=== PATIENT | female | born 2000 | race Hispanic/Latino ===

== ENCOUNTER 2018-01-28 14:16 | Emergency (ER) | payer MEDICAID ==
[~2018-01-28 14:16] MED LIST: ACET1TAB12 PO
[2018-01-28] MEDS ORDERED: ACETAMINOPHEN EXTRA STRENGTH 500 MG TABLET ONE (14:42)
[2018-01-28] MEDS ORDERED: CYCLOBENZAPRINE HCL 10 MG TABLET ONE (14:42)
== END 2018-01-28 16:06 | disposition home or self-care (01) ==
LOC: EDH 14:16
DX: M43.6 Torticollis (principal)

== ENCOUNTER 2019-01-25 18:14 | Inpatient (IN) | payer MEDICAID, OTHER ==
[~2019-01-25] VITALS: Ht 170.2 cm; Wt 94.8 kg
[2019-01-25] MEDS ORDERED: ONDANSETRON ODT 4 MG TAB ONE (18:42)
[2019-01-25] MEDS ORDERED: FAMOTIDINE 20MG TAB 20 MG TAB ONE ×2 (18:42→19:46)
[2019-01-25 18:47] LABS: BASOPHILS % (AUTO) 0.3 % (0.0-5.0); EOSINOPHILS % (AUTO) 0.3 % (0.0-8.0); HEMATOCRIT 28.8 % (36-48); LYMPHOCYTES % (AUTO) 11.1 % (21.0-51.0); MEAN CORPUSCULAR HGB CONC 31.4 g/dL (32.0-36.0); MEAN CORPUSCULAR VOLUME 63.7 fL (80-100); MONOCYTES % (AUTO) 5.4 % (3.0-13.0); NEUTROPHILS % (AUTO) 82.9 % (40.0-77.0); PLATELET COUNT (AUTO) 287 K/uL (130-400); RED BLOOD CELL COUNT(AUTO) 4.52 MIL/uL (4.00-5.50); RED CELL DISTRIBUTION WIDTH 21.1 % (11.0-15.5); WHITE BLOOD COUNT (AUTO) 9.7 K/uL (4.8-10.8)
[2019-01-25 18:50] LABS: APPEARANCE,URINE CLOUDY (CLEAR); BILIRUBIN,URINE NEGATIVE (NEGATIVE); COLOR,URINE YELLOW (YELLOW); GLUCOSE, URINE (UA) NEGATIVE (NEGATIVE); HCG,QUAL RESULT POSITIVE (NEGATIVE); KETONES,URINE NEGATIVE (NEGATIVE); LEUKOCYTE ESTERASE ,URINE LARGE (NEGATIVE); NITRATE,URINE NEGATIVE (NEGATIVE); OCCULT BLOOD,URINE LARGE (NEGATIVE); PH,URINE 8.5 (5.0-8.0); PROTEIN,URINE 100 mg/dL (NEGATIVE)
[2019-01-25 18:55] LABS: CREATININE 0.7 mg/dL (0.5-1.5); POTASSIUM 3.3 mmol/L (3.5-5.1)
[2019-01-25 18:59] LABS: ALBUMIN 3.6 g/dL (3.5-5.0); BILIRUBIN,DIRECT 0.1 mg/dL (0.0-0.3); BILIRUBIN,TOTAL 0.4 mg/dL (0.2-1.0); TOTAL PROTEIN, SERUM 7.5 g/dL (6.0-8.3)
[2019-01-25 19:21] LABS: BACTERIA,URINE Few /HPF (None Seen); SQUAMOUS EPITHELIAL CELL,UR Few /HPF (0-2); WBC,URINE >100 /HPF (0-1)
[2019-01-25 19:22] LABS: MUCUS,URINE Moderate LPF (None Seen)
[2019-01-25] MEDS ORDERED: CEFTRIAXONE SODIUM 1 GM ONE (19:46)
[2019-01-25] MEDS ORDERED: ACETAMINOPHEN 325 MG TAB ONE (19:46)
[2019-01-25] MEDS ORDERED: ACETAMINOPHEN-CODEINE 300/30MG TAB PO PRN (21:15)
--- NOTE | 2019-01-25 21:40 | NUR ---
Patient came in C/O lower back pain and Nausea and vomiting. Patient denies any pain or nausea and vomiting at this time. Assisted to Bathroom to change. Assisted to bed. Oriented to bed and call hogan. Bed locked and at low position. IV infusing to Rt antecubital. Notified of plan of care. Questions answered and patient verbalizes understanding. No distress noted
[2019-01-25 22:39] VITALS: BP 83/43
[2019-01-25] MEDS: DEXTROSE 5%-LACTATED RINGERS 1,000 ML IV SCH (23:17)
[2019-01-25] MEDS: PROMETHAZINE HCL 25 MG/ML 1ML AMPULE IM PRN (23:49)
--- NOTE | 2019-01-25 23:49 | NUR ---
Patient C/O feeling nauseated. Phenergan 25mg offered. Patient accepts. Phenergan 25mg given IM. Tolerated well.
[2019-01-26] VITALS (7 sets, daily range): BP systolic 68–105; BP diastolic 31–68
--- NOTE | 2019-01-26 02:46 | NUR ---
patient C/O back pain. Requesting pain medication. Score of 6. Tylenol #3 x2 tabs given
[2019-01-26] MEDS: DEXTROSE 5%-LACTATED RINGERS 1,000 ML IV SCH ×3 (04:53→18:32)
[2019-01-26 07:16] LABS: HEMATOCRIT 25.3 % (36-48); MEAN CORPUSCULAR HEMOGLOBIN 20.5 pg (27.0-33.0); MEAN CORPUSCULAR HGB CONC 31.5 g/dL (32.0-36.0); MEAN CORPUSCULAR VOLUME 65.1 fL (80-100); PLATELET COUNT (AUTO) 198 K/uL (130-400); RED BLOOD CELL COUNT(AUTO) 3.89 MIL/uL (4.00-5.50); WHITE BLOOD COUNT (AUTO) 6.5 K/uL (4.8-10.8)
[2019-01-26 07:24] LABS: CREATININE 0.6 mg/dL (0.5-1.5); POTASSIUM 3.3 mmol/L (3.5-5.1)
[2019-01-26 08:00] LABS: LYMPHOCYTES % (MANUAL) 31 % (22-44); MAN.DIFF COMMENT-IMPRESSION MANUAL DIFFERENTIAL; MONOCYTES % (MANUAL) 6 % (2-9); PLATELET MORPHOLOGY COMMENT ADEQUATE; SEGMENTED NEUTROPHILS % 63 % (40-70)
[2019-01-26] MEDS ORDERED: ACETAMINOPHEN-CODEINE 300/30MG TAB PO PRN (08:15)
[2019-01-26] MEDS: CEFTRIAXONE SODIUM 1 GM IVP SCH (09:39)
--- NOTE | 2019-01-26 15:11 | NUR ---
DC PLAN PATIENT LIVES WITH PARENTS. INDEPENDENT ABLE TO PERFORM ADL'S. PATIENT HAS NO SERVICES OR DME'S. PLAN TO RETURN HOME. Addendum: 01/26/19 at 1513 by NEREYDA JARRETT RN CM Amended: Links added.
[2019-01-26] MEDS: ACETAMINOPHEN-CODEINE 300/30MG TAB PO PRN (16:58)
--- NOTE | 2019-01-26 20:20 | NUR ---
received pt. in bed lying on her left side. Physical assessment done. Pt. verbalized that she is by herself tonight. She said that her pain scale is 2 out of 10. positive CVA punch on her right middle flank. Pt. verbalized that her is a surprised. She is a 6 para 5 at 4 wks. by dates and 6 wks. by sonogram. no tachycardia noted and no dyspnea. Iv of D5LR infusing at 150cc per hour per IV pump. IV site is patent and no swelling and no pain noted and as verbalized by the pt.
--- NOTE | 2019-01-26 20:30 | NUR ---
pt. denies abdominal cramping. Pt. fell asleep after assessment.
[2019-01-27] MEDS: DEXTROSE 5%-LACTATED RINGERS 1,000 ML IV SCH ×4 (00:36→23:29)
--- NOTE | 2019-01-27 00:44 | NUR ---
patient denies pain. New bag of D5LR hang and infusing at 150 cc per hour per IV pump. IV site patent.
[2019-01-27 03:48] VITALS: BP 99/58
[2019-01-27] MEDS: ACETAMINOPHEN-CODEINE 300/30MG TAB PO PRN ×2 (05:55→13:02)
[2019-01-27 07:22] VITALS: BP 95/52
[2019-01-27] MEDS: CEFTRIAXONE SODIUM 1 GM IVP SCH (08:11)
--- NOTE | 2019-01-27 08:42 | NUR ---
ACTIVITY PT AMBULATING HALLWAY, STEADY GAIT, TOLERATING WELL, NO C/O PAIN NOR DIZZINESS OR FATIGUE
[2019-01-27 11:23] VITALS: BP 90/43
[2019-01-27 16:55] VITALS: BP 97/51
[2019-01-27] MEDS: PROMETHAZINE HCL 25 MG/ML 1ML AMPULE IM PRN (17:27)
[2019-01-27 19:50] VITALS: BP 104/57
[2019-01-27 23:40] VITALS: BP 107/55
[2019-01-28 03:30] VITALS: BP 98/57
[2019-01-28] MEDS: DEXTROSE 5%-LACTATED RINGERS 1,000 ML IV SCH (05:47)
[2019-01-28 07:42] VITALS: BP 109/51
[2019-01-28] MEDS: CEFTRIAXONE SODIUM 1 GM IVP SCH (09:09)
--- NOTE | 2019-01-28 11:25 | NUR ---
INSTRUCTIONS DISCHARGE INSTRUCTIONS READ AND EXPLAINED TO PATIENT. PRESCRIPTION FOR KEFLEX 500MG, FERROUS SULFATE 325MG AND VITAMINS HANDED TO PATIENT. QUESTIONS INVITED AND ANSWERED.
--- NOTE | 2019-01-28 11:45 | NUR ---
DISCHARGE PATIENT LEFT UNIT VIA WHEELCHAIR WITH BELONGINGS IN HAND. NO COMPLAINTS OR CONCERNS ADDRESSED FROM PATIENT ON DISCHARGE. PERSONAL VEHICLE USED FOR TRANSPORTATION.
== END 2019-01-28 11:45 | disposition home or self-care (01) | DRG 833 ==
LOC: EDH 18:14 → OBSVTOIN 18:15 → EDHIP 18:15 → WSH 23:13
PROVIDERS: ADMIT Specialist; ATTEND Specialist
DX: O23.01 Infections of kidney in pregnancy, first trimester (principal)
CPT/HCPCS: 36415; 76817; 80048; 80076; 81001; 81025; 83690; 84702; 85025; 87077; 87088; 87186; 96360; 96361; A4218; G0378; J0696; J2550

== ENCOUNTER 2019-05-28 13:38 | Emergency (ER) | payer MEDICAID ==
[2019-05-28] MEDS ORDERED: ACETAMINOPHEN 325 MG TAB ONE (13:57)
== END 2019-05-28 15:10 | disposition home or self-care (01) ==
LOC: EDH 13:38
DX: O9A.212 Injury, poisoning and certain other consequences of external causes complicating pregnancy, second trimester (principal); S50.01XA Contusion of right elbow, initial encounter; Z3A.15 15 weeks gestation of pregnancy; W23.0XXA Caught, crushed, jammed, or pinched between moving objects, initial encounter; Y93.89 Activity, other specified; Y92.098 Other place in other non-institutional residence as the place of occurrence of the external cause; Y99.8 Other external cause status
CPT/HCPCS: 99282

== ENCOUNTER 2020-12-12 18:33 | Emergency (ER) | payer MEDICAID ==
[2020-12-12 19:19] LABS: APPEARANCE,URINE Cloudy (CLEAR); BILIRUBIN,URINE Negative (NEGATIVE); COLOR,URINE Yellow (YELLOW); GLUCOSE, URINE (UA) Negative (NEGATIVE); KETONES,URINE Negative (NEGATIVE); LEUKOCYTE ESTERASE ,URINE Moderate (NEGATIVE); NITRATE,URINE Negative (NEGATIVE); OCCULT BLOOD,URINE Large (NEGATIVE); PH,URINE 5.5 (5.0-8.0); PROTEIN,URINE POS 2+ mg/dL (NEGATIVE)
[2020-12-12 19:24] LABS: HCG,QUAL RESULT NEGATIVE (NEGATIVE)
[2020-12-12] MEDS ORDERED: PHENAZOPYRIDINE HCL 200 MG TABLET ONE (19:53)
[2020-12-12] MEDS ORDERED: CEFTRIAXONE 1G VIAL ONE (19:53)
[2020-12-12 20:01] LABS: BACTERIA,URINE Few /HPF (None Seen); RBC,URINE None Seen /HPF (0-1); SQUAMOUS EPITHELIAL CELL,UR 0-2 /HPF (0-2); WBC,URINE 51-100 /HPF (0-1)
[2020-12-12 20:02] LABS: MUCUS,URINE Few LPF (None Seen)
== END 2020-12-12 21:16 | disposition home or self-care (01) ==
LOC: EDH 18:33
DX: N30.90 Cystitis, unspecified without hematuria (principal); Z90.49 Acquired absence of other specified parts of digestive tract; Z98.51 Tubal ligation status; Z72.0 Tobacco use
CPT/HCPCS: 81001; 81025; 87077 ×2; 87088; 87186 ×2; 96372; 99283; J0696

== ENCOUNTER 2022-06-06 09:45 | Emergency (ER) | payer MEDICAID ==
[~2022-06-06] VITALS: Ht 170.2 cm; Wt 90.7 kg
[2022-06-06 10:16] LABS: BASOPHILS % (AUTO) 0.4 % (0.0-5.0); EOSINOPHILS % (AUTO) 0.5 % (0.0-8.0); HEMATOCRIT 35.5 % (36-48); LYMPHOCYTES % (AUTO) 16.2 % (21.0-51.0); MEAN CORPUSCULAR HEMOGLOBIN 21.9 pg (27.0-33.0); MEAN CORPUSCULAR HGB CONC 30.1 g/dL (32.0-36.0); MEAN CORPUSCULAR VOLUME 72.6 fL (79-99); MONOCYTES % (AUTO) 5.1 % (3.0-13.0); NEUTROPHILS % (AUTO) 77.6 % (40.0-77.0); PLATELET COUNT (AUTO) 275 K/uL (130-400); RED BLOOD CELL COUNT(AUTO) 4.89 MIL/uL (4.00-5.50); RED CELL DISTRIBUTION WIDTH 17.9 % (11.0-15.5)
[2022-06-06 10:23] LABS: CREATININE 0.7 mg/dL (0.5-1.5); POTASSIUM 3.7 mmol/L (3.5-5.1)
[2022-06-06 10:26] LABS: HCG,QUALITATIVE URINE NEGATIVE (NEGATIVE)
[2022-06-06 10:28] LABS: ALBUMIN 3.8 g/dL (3.5-5.0); TOTAL PROTEIN, SERUM 8.3 g/dL (6.0-8.3)
[2022-06-06 10:54] LABS: APPEARANCE,URINE CLOUDY (CLEAR); BILIRUBIN,URINE NEGATIVE (NEGATIVE); COLOR,URINE YELLOW (YELLOW); GLUCOSE, URINE (UA) NEGATIVE (NEGATIVE); KETONES,URINE NEGATIVE (NEGATIVE); LEUKOCYTE ESTERASE ,URINE MODERATE (NEGATIVE); NITRATE,URINE NEGATIVE (NEGATIVE); OCCULT BLOOD,URINE LARGE (NEGATIVE); PH,URINE 6.5 (5.0-8.0); PROTEIN,URINE 100 mg/dL (NEGATIVE); UROBILINOGEN,URINE 0.2 mg/dL (0.2-1.0)
[2022-06-06] MEDS ORDERED: ONDANSETRON 4MG INJ IVP ONE (11:00)
[2022-06-06] MEDS ORDERED: MORPHINE 4 MG SYG IVP ONE ×2 (11:00→13:00)
[2022-06-06] MEDS ORDERED: KETOROLAC 15MG/ML VIAL (15MG/ML) IV ONE (11:00)
[2022-06-06 11:17] LABS: BACTERIA,URINE Rare /HPF (None Seen); RBC,URINE 0-1 /HPF (0-1); SQUAMOUS EPITHELIAL CELL,UR Rare /HPF (0-2); WBC,URINE >100 /HPF (0-1)
[2022-06-06] MEDS ORDERED: DICYCLOMINE HCL 10 MG/5 ML ML PO ONE (13:00)
[2022-06-06] MEDS ORDERED: LIDOCAINE HCL 2% VISCOUS 15 ML UDCUP PO ONE (13:00)
[2022-06-06] MEDS ORDERED: MAG/ALUM/SIMETH 30 ML UDCUP PO ONE (13:00)
[2022-06-06] MEDS ORDERED: CYCLOBENZAPRINE HCL 10 MG TABLET PO ONE (13:00)
[2022-06-06] MEDS ORDERED: IBUP-2070 PO (14:36)
[2022-06-06] MEDS ORDERED: ACET-2079 PO (14:36)
[2022-06-06 15:15] VITALS: BP 96/57
== END 2022-06-06 15:19 | disposition home or self-care (01) ==
LOC: EDH 09:45
DX: M54.9 Dorsalgia, unspecified (principal); R10.84 Generalized abdominal pain; R10.11 Right upper quadrant pain; R11.0 Nausea; Z79.1 Long term (current) use of non-steroidal anti-inflammatories (NSAID); Z90.49 Acquired absence of other specified parts of digestive tract
CPT/HCPCS: 99284; 74176; 96374; 76705; 96375; 80053; 85025; 87077; 87088; 87186; 81001; 81025; 36415; J2405; J2270; J1885

== ENCOUNTER 2022-06-12 05:44 | Emergency (ER) | payer MEDICAID ==
[~2022-06-12 05:44] MED LIST changes: +ACET-2079 PO; -ACET1TAB12 PO; +IBUP-2070 PO
[2022-06-12 06:11] LABS: BASOPHILS % (AUTO) 0.3 % (0.0-5.0); EOSINOPHILS % (AUTO) 0.3 % (0.0-8.0); HEMATOCRIT 33.3 % (36-48); LYMPHOCYTES % (AUTO) 32.2 % (21.0-51.0); MEAN CORPUSCULAR HEMOGLOBIN 22.3 pg (27.0-33.0); MEAN CORPUSCULAR HGB CONC 30.6 g/dL (32.0-36.0); MEAN CORPUSCULAR VOLUME 72.7 fL (79-99); MONOCYTES % (AUTO) 8.3 % (3.0-13.0); NEUTROPHILS % (AUTO) 58.6 % (40.0-77.0); PLATELET COUNT (AUTO) 270 K/uL (130-400); RED BLOOD CELL COUNT(AUTO) 4.58 MIL/uL (4.00-5.50); RED CELL DISTRIBUTION WIDTH 18.3 % (11.0-15.5); WHITE BLOOD COUNT (AUTO) 7.5 K/uL (4.8-10.8)
[2022-06-12 06:19] LABS: APPEARANCE,URINE CLOUDY (CLEAR); BILIRUBIN,URINE SMALL (NEGATIVE); COLOR,URINE YELLOW (YELLOW); GLUCOSE, URINE (UA) NEGATIVE (NEGATIVE); KETONES,URINE 5 mg/dL (NEGATIVE); LEUKOCYTE ESTERASE ,URINE MODERATE (NEGATIVE); NITRATE,URINE POSITIVE (NEGATIVE); OCCULT BLOOD,URINE SMALL (NEGATIVE); PROTEIN,URINE TRACE mg/dL (NEGATIVE)
[2022-06-12 06:23] LABS: ALBUMIN 3.4 g/dL (3.5-5.0); CREATININE 0.8 mg/dL (0.5-1.5); POTASSIUM 3.7 mmol/L (3.5-5.1); TOTAL PROTEIN, SERUM 7.5 g/dL (6.0-8.3)
[2022-06-12 06:23] LABS: HCG,QUALITATIVE URINE NEGATIVE (NEGATIVE)
[2022-06-12] MEDS ORDERED: CEFTRIAXONE 1G VIAL IVP ONE (06:30)
[2022-06-12] MEDS ORDERED: MORPHINE 4 MG SYG IVP ONE (06:30)
[2022-06-12] MEDS ORDERED: ONDANSETRON 4MG INJ IVP ONE (06:30)
[2022-06-12] MEDS ORDERED: 0.9%NACL 1000ML 1,000 ML IV ONE (06:30)
[2022-06-12 06:33] LABS: BACTERIA,URINE Many /HPF (None Seen); MUCUS,URINE Many LPF (None Seen); RBC,URINE 0-1 /HPF (0-1); SQUAMOUS EPITHELIAL CELL,UR Few /HPF (0-2); WBC,URINE 26-50 /HPF (0-1)
[2022-06-12] MEDS ORDERED: SOLU-MEDROL 125MG VIAL IVP ONE (08:00)
[2022-06-12] MEDS ORDERED: DiphenhydrAMINE HCL 50 MG/ML VIAL IV ONE (08:00)
[2022-06-12 08:19] VITALS: BP 138/87
== END 2022-06-12 08:21 | disposition home or self-care (01) ==
LOC: EDH 05:44
DX: N10 Acute pyelonephritis (principal); Z79.1 Long term (current) use of non-steroidal anti-inflammatories (NSAID); Z90.49 Acquired absence of other specified parts of digestive tract
CPT/HCPCS: 99284; 74176; 96374; 96375; 80053; 83690; 85025; 87077; 87088; 87186; 81001; 81025; 36415; J7030; J0696; J2405; J2270

== ENCOUNTER 2023-07-14 17:59 | Emergency (ER) | payer MEDICAID ==
[~2023-07-14] VITALS: Ht 170.2 cm; Wt 86.2 kg
[2023-07-14 18:04] VITALS: BP 110/63; PULSE 112; RESP 16; O2SAT 97
[2023-07-14 18:23] LABS: BASOPHILS # (AUTO) 0.04 K/uL (0.00-0.20); BASOPHILS % (AUTO) 0.4 % (0.0-5.0); EOSINOPHILS # (AUTO) 0.08 K/uL (0.00-0.70); EOSINOPHILS % (AUTO) 0.8 % (0.0-8.0); HEMATOCRIT 41.9 % (36-48); IMMATURE GRANULOCYTE ABSOLUTE 0.02 K/uL (0-1); LYMPHOCYTES # (AUTO) 1.4 K/uL (1.0-4.8); LYMPHOCYTES % (AUTO) 12.9 % (21.0-51.0); MEAN CORPUSCULAR HEMOGLOBIN 25.8 pg (27.0-33.0); MEAN CORPUSCULAR HGB CONC 31.7 g/dL (32.0-36.0); MEAN CORPUSCULAR VOLUME 81.4 fL (79-99); MONOCYTES # (AUTO) 0.5 K/uL (0.1-1.0); MONOCYTES % (AUTO) 4.6 % (3.0-13.0); NEUTROPHILS # (AUTO) 8.6 K/uL (1.8-7.7); NEUTROPHILS % (AUTO) 81.1 % (40.0-77.0); PLATELET COUNT (AUTO) 305 K/uL (130-400); RED BLOOD CELL COUNT(AUTO) 5.15 MIL/uL (4.00-5.50); RED CELL DISTRIBUTION WIDTH 16.4 % (11.0-15.5); WHITE BLOOD COUNT (AUTO) 10.6 K/uL (4.8-10.8)
[2023-07-14 18:25] LABS: APPEARANCE,URINE CLOUDY (CLEAR); BILIRUBIN,URINE NEGATIVE (NEGATIVE); COLOR,URINE YELLOW (YELLOW); GLUCOSE, URINE (UA) NEGATIVE (NEGATIVE); KETONES,URINE 5 mg/dL (NEGATIVE); LEUKOCYTE ESTERASE ,URINE 500 Leu/uL (NEGATIVE); NITRATE,URINE NEGATIVE (NEGATIVE); OCCULT BLOOD,URINE LARGE (NEGATIVE); PH,URINE 5.5 (5.0-8.0); PROTEIN,URINE 30 mg/dL (NEGATIVE); UROBILINOGEN,URINE 0.2 mg/dL (0.2-1.0)
[2023-07-14 18:27] LABS: ADD UA MICROSCOPIC YES
[2023-07-14 18:29] LABS: BACTERIA,URINE FEW /HPF (None Seen); MUCUS,URINE MOD LPF (None Seen); SQUAMOUS EPITHELIAL CELL,UR FEW /HPF (0-2); WBC,URINE 51-100 /HPF (0-1)
[2023-07-14 18:33] LABS: AMPHET/METH SCREEN,URINE NEGATIVE (NEGATIVE); BARBITURATE SCREEN, URINE NEGATIVE (NEGATIVE); BENZODIAZEPINES SCREEN,URINE NEGATIVE (NEGATIVE); CANNABINOID SCREEN,URINE POSITIVE (NEGATIVE); COCAINE SCREEN,URINE POSITIVE (NEGATIVE); CREATININE 0.7 mg/dL (0.5-1.5); OPIATE SCREEN,URINE NEGATIVE (NEGATIVE); PHENCYCLIDINE SCREEN,URINE NEGATIVE (NEGATIVE); POTASSIUM 3.7 mmol/L (3.5-5.1)
[2023-07-14 18:38] LABS: ALBUMIN 3.7 g/dL (3.5-5.0); BILIRUBIN,TOTAL 0.4 mg/dL (0.2-1.0); TOTAL PROTEIN, SERUM 8.6 g/dL (6.0-8.3)
[2023-07-14] MEDS ORDERED: CEFTRIAXONE 2GM VIAL IVPB ONE (20:00)
[2023-07-14] MEDS ORDERED: LORAZEPAM 2 MG/ML 1 ML VIAL IVP ONE (20:00)
[2023-07-14] MEDS ORDERED: 0.9%NACL 1000ML 1,000 ML IV ONE ×2 (20:00→20:30)
[2023-07-14] MEDS ORDERED: METO-296 PO (20:57)
[2023-07-14] MEDS ORDERED: CEPH500B PO (20:57)
== END 2023-07-14 21:49 | disposition home or self-care (01) ==
LOC: EDH 17:59
DX: N39.0 Urinary tract infection, site not specified (principal); F14.90 Cocaine use, unspecified, uncomplicated; F12.90 Cannabis use, unspecified, uncomplicated; Z90.49 Acquired absence of other specified parts of digestive tract
CPT/HCPCS: 99284; 96374; 96375; 80053; 80305; 83690; 85025; 87088; 81001; 36415; J7030 ×2; J0696; J2060

== ENCOUNTER 2023-11-26 19:21 | Emergency (ER) | payer MEDICAID, OTHER ==
[~2023-11-26] VITALS: Ht 162.6 cm; Wt 81.6 kg
[~2023-11-26 19:21] MED LIST changes: +CEPH500B PO; +METO-296 PO
[2023-11-26] MEDS: GABAPENTIN 300 MG CAPSULE PO SCH (20:13)
[2023-11-26] MEDS: CYCLOBENZAPRINE HCL 10 MG TABLET PO ONE (20:13)
[2023-11-26] MEDS: KETOROLAC 60 MG VIAL (30MG/ML) IM ONE (20:15)
[2023-11-26] MEDS ORDERED: GABA300C PO (20:45)
[2023-11-26] MEDS ORDERED: IBUP-1493 PO (20:45)
[2023-11-26] MEDS ORDERED: CYCL-309 PO (20:45)
[2023-11-26 21:24] VITALS: BP 110/69; PULSE 70; RESP 17; O2SAT 18
== END 2023-11-26 21:26 | disposition home or self-care (01) ==
LOC: EDH 19:21
DX: M54.50 Low back pain, unspecified (principal); R20.0 Anesthesia of skin; Z90.49 Acquired absence of other specified parts of digestive tract
CPT/HCPCS: 99284; 84703; 36415; 72100; 96372; J1885

== ENCOUNTER 2024-07-26 11:47 | Emergency (ER) | payer SELFPAY ==
[~2024-07-26] VITALS: Ht 170.2 cm; Wt 84.8 kg
[~2024-07-26 11:47] MED LIST changes: +CYCL-309 PO; +GABA300C PO; +IBUP-1493 PO
[2024-07-26 12:48] LABS: BASOPHILS # (AUTO) 0.03 K/uL (0.00-0.20); BASOPHILS % (AUTO) 0.5 % (0.0-5.0); EOSINOPHILS # (AUTO) 0.07 K/uL (0.00-0.70); EOSINOPHILS % (AUTO) 1.1 % (0.0-8.0); IMMATURE GRANULOCYTE ABSOLUTE 0.01 K/uL (0-1); LYMPHOCYTES # (AUTO) 1.6 K/uL (1.0-4.8); LYMPHOCYTES % (AUTO) 25.5 % (21.0-51.0); MEAN CORPUSCULAR HEMOGLOBIN 27.9 pg (27.0-33.0); MEAN CORPUSCULAR VOLUME 87.3 fL (79-99); MONOCYTES # (AUTO) 0.3 K/uL (0.1-1.0); MONOCYTES % (AUTO) 5.4 % (3.0-13.0); NEUTROPHILS # (AUTO) 4.1 K/uL (1.8-7.7); NEUTROPHILS % (AUTO) 67.3 % (40.0-77.0); PLATELET COUNT (AUTO) 219 K/uL (130-400); RED BLOOD CELL COUNT(AUTO) 4.58 MIL/uL (4.00-5.50); RED CELL DISTRIBUTION WIDTH 14.1 % (11.0-15.5); WHITE BLOOD COUNT (AUTO) 6.1 K/uL (4.8-10.8)
[2024-07-26 12:49] LABS: HCG,QUALITATIVE URINE NEGATIVE (NEGATIVE)
[2024-07-26 12:50] LABS: APPEARANCE,URINE CLOUDY (CLEAR); BILIRUBIN,URINE NEGATIVE (NEGATIVE); COLOR,URINE YELLOW (YELLOW); GLUCOSE, URINE (UA) NEGATIVE (NEGATIVE); KETONES,URINE NEGATIVE (NEGATIVE); LEUKOCYTE ESTERASE ,URINE 500 Leu/uL (NEGATIVE); NITRATE,URINE NEGATIVE (NEGATIVE); OCCULT BLOOD,URINE NEGATIVE (NEGATIVE); PH,URINE 6.5 (5.0-8.0); PROTEIN,URINE 10 mg/dL (NEGATIVE)
[2024-07-26 13:01] LABS: CREATININE 0.7 mg/dL (0.5-1.0); POTASSIUM 3.7 mmol/L (3.5-5.1)
[2024-07-26 13:13] LABS: ADD UA MICROSCOPIC YES
[2024-07-26 13:15] LABS: BACTERIA,URINE FEW /HPF (None Seen); MUCUS,URINE FEW LPF (None Seen); SQUAMOUS EPITHELIAL CELL,UR MANY /HPF (0-2); UNCLASSIFIED CRYSTAL 1 /HPF (None Seen)
[2024-07-26] MEDS: ondanSETRON 4MG INJ IVP ONE (13:26)
[2024-07-26] MEDS: ketOROlac 30MG VIAL (30MG/ML) IVP ONE (13:26)
[2024-07-26] MEDS: 0.9%NACL 1000ML 1,000 ML IV ONE (13:26)
[2024-07-26] MEDS ORDERED: DICY20TA2 PO (14:17)
[2024-07-26] MEDS ORDERED: AMOX1TAB16 PO (14:17)
[2024-07-26 14:51] VITALS: BP 124/65; PULSE 72; RESP 16; TEMP 98.7; O2SAT 99
== END 2024-07-26 14:52 | disposition home or self-care (01) ==
LOC: EDH 11:47
DX: R10.11 Right upper quadrant pain (principal); N30.01 Acute cystitis with hematuria; Z79.1 Long term (current) use of non-steroidal anti-inflammatories (NSAID); Z79.899 Other long term (current) drug therapy; Z90.49 Acquired absence of other specified parts of digestive tract
CPT/HCPCS: 99285; 96374; 76705; 96375; 80048; 85025; 87086; 81001; 81025; 36415; J7030; J2405; J1885

== ENCOUNTER 2024-12-09 12:10 | Emergency (ER) | payer SELFPAY ==
[~2024-12-09] VITALS: Ht 170.2 cm; Wt 82.6 kg
[~2024-12-09 12:10] MED LIST changes: +AMOX1TAB16 PO; +DICY20TA2 PO
--- NOTE | 2024-12-09 12:25 | ERN ---
ED Note History of Present Illness Stated Complaint: POSSIBLE STOMACH BUG Chief Complaint: Abdominal Pain Time Seen by MD: 12:14 Dictation: PATIENT IS A 24-YEAR-OLD FEMALE COMPLAINING OF POSSIBLE STOMACH BUG AND HAVING NAUSEA VOMITING WITH DIARRHEA ONSET YESTERDAY. SHE STATES SHE HAS VOMITED A TOLD TO 3 TIMES WITH DIARRHEA X1. NO FOCAL PAIN AT THIS TIME. NO CHANGE IN URINATION NO PRIMARY CARE DOCTOR. SHE STATES SHE HAS TAKEN NOTHING TO ARRIVAL PRIOR FOR PAIN. Allergies: Coded Allergies: No Known Drug Allergies (Verified Allergy, 01/11/14) Home Meds Active Scripts Ondansetron (Ondansetron Odt) 4 Mg Tab.rapdis, 4 MG PO Q6HPRN PRN for nausea, #16 TAB 0 Refills Prov:ENDY HARRIS NP 12/09/24 Amoxicillin/Potassium Clav (Amox Tr-K Clv 875-125 mg Tab) 875 Mg-125 Mg Tablet, 1 EACH PO BID for 7 Days, #14 TAB 0 Refills Prov:ENDY HARRIS NP 12/09/24 Amoxicillin/Potassium Clav (Amox Tr-K Clv 875-125 mg Tab) 875 Mg-125 Mg Tablet, 1 EACH PO BID for 7 Days, #14 TAB 0 Refills Prov:ENDY HARRIS NP 07/26/24 Dicyclomine HCl (Bentyl) 20 Mg Tab, 1 TAB PO QID for irritable bowel symptoms, #30 TAB 0 Refills ONE TABLET BY MOUTH EVERY 6 HOURS P.R.N. PAIN Prov:ENDY HARRIS NP 07/26/24 Ibuprofen (Motrin/Advil) 800 Mg Tab, 800 MG PO TID, #30 TAB Prov:WOODY MADSEN MD 11/26/23 Gabapentin (Neurontin) 300 Mg Capsule, 300 MG PO TID, #60 CAP Prov:WOODY MADSEN MD 11/26/23 Cyclobenzaprine HCl (Cyclobenzaprine HCl) 10 Mg Tablet, 10 MG PO TID, #60 TAB Prov:WOODY MADSEN MD 11/26/23 Metoclopramide HCl (Reglan) 10 Mg Tablet, 10 MG PO QIDP PRN for NAUSEA, #30 TAB 2 Refills Prov:DANUTA CRUZ Sr., MD 07/14/23 Cephalexin Monohydrate (Keflex) 500 Mg Cap, 500 MG PO QID for 10 Days, #40 CAP 0 Refills Prov:DANUTA CRUZ Sr., MD 07/14/23 Acetaminophen with Codeine (Acetaminophen-Cod #3 Tablet) 1 Each Tablet, 1 TAB PO Q6H PRN for PAIN LEVEL 7 TO 10, #15 TAB Prov:JEANETTE POWERS MD 06/06/22 Ibuprofen (Ibuprofen) 600 Mg Tablet, 600 MG PO Q6H PRN for PAIN, #30 TAB Prov:JEANETTE POWERS MD 06/06/22 Past Medical History Past Medical History: Other Additional Past Medical Hx: KIDNEY STONES Surgical History: Cholecystectomy Family History: Negative Social History: ETOH, Lives with family History: Not Applicable RN Note Reviewed/Agreed w/PFSH: Yes Review of System Dictation CONSTITUTIONAL: NEGATIVE EXCEPT FOR HPI HEAD/FACE: NEGATIVE EXCEPT FOR HPI EENT: NEGATIVE EXCEPT FOR HPI RESPIRATORY: NEGATIVE EXCEPT FOR HPI GASTROINTESTINAL/ABDOMINAL: NEGATIVE EXCEPT FOR HPI NAUSEA VOMITING WITH WITH DIARRHEA GENITOURINARY: NEGATIVE EXCEPT FOR HPI MUSCULOSKELETAL: NEGATIVE EXCEPT FOR HPI INTEGUMENTARY: NEGATIVE EXCEPT FOR HPI NEUROLOGICAL/PSYCH: NEGATIVE EXCEPT FOR HPI HEMATOLOGIC/LYMPHATIC: NEGATIVE EXCEPT FOR HPI ALL SYSTEMS NEGATIVE, EXCEPT NOTED ABOVE. 13 POINT REVIEW OF SYSTEMS ASSESSED AND ALL NEGATIVE EXCEPT FOR ABOVE. Initial Vital Sign VS Vital Signs Date Time Temp Pulse Resp B/P (MAP) Pulse Ox O2 Delivery O2 Flow Rate FiO2 12/09/24 12:37 99.9 98 20 101/63 99 Room Air 0 12/09/24 15:43 21 Physical Exam Dictation VITAL SIGNS REVIEWED GENERAL APPEARANCE: ALERT, ORIENTED X 3, NO ACUTE DISTRESS, WELL DEVELOPED, N OURISHED. HEAD AND FACE: NON-TRAUMATIC. EYES: PERRL, PINK CONJUNCTIVAS, EYELID NO TRAUMA, ANTERIOR CHAMBER WITH ARCUS SENILIS. EARS: PINNAS INTACT AND NO SIGNS OF TRAUMA OR ERYTHEMA EAR CANALS CLEAR AND NO DISCHARGE TM NO ERYTHEMA NOSE: NO DISCHARGE, NO BLEEDING. OROPHARYNX: MOUTH NORMAL, TONGUE PINK, PHARYNX CLEAR,NO ERYTHEMA, TONSILS NO EXUDATES, NO ABSCESSES NOTED, MUCOUS MEMBRANE MOIST NECK: SUPPLE, NON-TENDER, NO THYROMEGALY, NO MASSES, NO JVD, NO BRUITS BREAST:DEFERRED CHEST:NO TENDERNESS, NO CREPITUS, NO PARADOXICAL MOVEMENT, NO RETRACTIONS LUNGS:CLEAR, WELL-VENTILATED, SYMMETRIC, NO RALES, NO WHEEZING, NO RHONCHI, NO STRIDOR, GOOD BREATH SOUNDS BILATERALLY HEART: REGULAR RATE, REGULAR RHYTHM, NO MURMUR, NO GALLOPS VASCULAR: NO PERIPHERAL EDEMA, ABDOMEN: SOFT, POSITIVE BOWEL SOUNDS, NONDISTENDED, NO GUARDING, NONTENDER, NO REBOUND, NO MASSES NO HEPATOMEGALY, NO SPLENOMEGALY, NO JIMENEZ'S SIGN, NO HERNIAS. NO FOCAL TENDERNESS WITH PALPATION RECTAL: DEFERRED GENITAL: DEFERRED NEUROLOGICAL: NORMAL SPEECH, MOTOR FUNCTION INTACT, SENSORY FUNCTION INTACT MUSCULOSKELETAL: NECK NONTENDER, FULL RANGE OF MOTION, BACK NONTENDER, FULL RANGE OF MOTION, EXTREMITIES: NONTENDER, FULL RANGE OF MOTION SKIN: COLOR PINK, DRY, NO TURGOR, NO RASH, NO LACERATIONS, NO ABRASIONS, NO CONTUSIONS. LYMPHATIC: DEFERRED Results (Laboratory/Radiology) Laboratory/Radiology Laboratory Tests Test 12/09/24 12:42 12/09/24 12:45 White Blood Count 5.8 K/uL (4.8-10.8) Red Blood Count 4.86 MIL/uL (4.00-5.50) Hemoglobin 12.6 g/dL (12.0-16.0) Hematocrit 39.3 % (36-48) Mean Corpuscular Volume 80.9 fL (79-99) Mean Corpuscular Hemoglobin 25.9 pg (27.0-33.0) L Mean Corpuscular Hemoglobin Concent 32.1 g/dL (32.0-36.0) Red Cell Distribution Width 14.6 % (11.0-15.5) Platelet Count 281 K/uL (130-400) Mean Platelet Volume 10.1 fL (7.5-10.5) Immature Granulocyte % (Auto) 0.2 % (0-1) Neutrophils (%) (Auto) 58.6 % (40.0-77.0) Lymphocytes (%) (Auto) 32.5 % (21.0-51.0) Monocytes (%) (Auto) 6.7 % (3.0-13.0) Eosinophils (%) (Auto) 1.5 % (0.0-8.0) Basophils (%) (Auto) 0.5 % (0.0-5.0) Neutrophils # (Auto) 3.4 K/uL (1.8-7.7) Lymphocytes # (Auto) 1.9 K/uL (1.0-4.8) Monocytes # (Auto) 0.4 K/uL (0.1-1.0) Eosinophils # (Auto) 0.09 K/uL (0.00-0.70) Basophils # (Auto) 0.03 K/uL (0.00-0.20) Absolute Immature Granulocyte (auto 0.01 K/uL (0-1) Nucleated Red Blood Cells 0.0 % (0.0-0.19) Sodium Level 138 mmol/L (136-145) Potassium Level 3.4 mmol/L (3.5-5.1) L Chloride Level 103 mmol/L (101-111) Carbon Dioxide Level 28 mmol/L (21-32) Blood Urea Nitrogen 13 mg/dL (7-18) Creatinine 0.7 mg/dL (0.5-1.0) Glomerular Filtration Rate Calc 122 mL/min (>90) Random Glucose 98 mg/dL (70-105) Total Calcium 8.9 mg/dL (8.5-10.1) Lipase 27 U/L (16-77) Urine Color YELLOW (YELLOW) Urine Appearance HAZY (CLEAR) Urine pH 6.0 (5.0-8.0) Urine Specific [place] 1.031 (1.001-1.031) Urine Protein 30 mg/dL (NEGATIVE) H Urine Glucose (UA) NEGATIVE mg/dL (NEGATIVE) Urine Ketones NEGATIVE mg/dL (NEGATIVE) Urine Occult Blood LARGE (NEGATIVE) H Urine Nitrate NEGATIVE (NEGATIVE) Urine Bilirubin NEGATIVE mg/dL (NEGATIVE) Urine Urobilinogen 2.0 mg/dL (0.2-1.0) H Urine Leukocyte Esterase 250 Dimas/uL (NEGATIVE) H Urine RBC TNTC /HPF (0-1) H Urine WBC 26-50 /HPF (0-1) H Urine Squamous Epithelial Cells FEW /HPF (0-2) Urine Bacteria RARE /HPF (None Seen) Urine HCG, Qualitative NEGATIVE (NEGATIVE) Labs Reviewed?: Yes ED Course ED Course Orders Procedure Category Date Status Time Cbc With Differential LAB 12/09/24 Complete 12:23 ,Urine Test LAB 12/09/24 Complete 12:23 Urinalysis Profile LAB 12/09/24 Complete 12:23 Lipase LAB 12/09/24 Complete 12:23 Basic Metabolic Panel LAB 12/09/24 Complete 12:23 Ondansetron Odt 4mg PHA 12/09/24 Complete Tab (Zofran 4mg Odt) 12:30 Culture Urine SILVANA 12/09/24 In Process 13:49 Amox/Clav 875/125mg PHA 12/09/24 Complete Tab (Augmentin 875-1 14:30 Current Medications Medications (Trade) Dose Ordered Sig/Devan Route PRN Reason Start Time Stop Time Status Last Admin Dose Admin Amoxicillin/ Clavulanate Potassium (Augmentin 875-125 Tablet) 1 each ONCE ONCE PO 12/09/24 14:30 12/09/24 14:31 DC 12/09/24 14:30 Ondansetron HCl (zoFRAN 4MG ODT) 4 mg ONCE ONCE SL 12/09/24 12:30 12/09/24 12:32 DC 12/09/24 12:54 Vital Signs Date Time Temp Pulse Resp B/P (MAP) Pulse Ox O2 Delivery O2 Flow Rate FiO2 12/09/24 15:43 99.9 98 20 101/63 99 Room Air* 0 21 12/09/24 12:37 99.9 98 20 101/63 99 Room Air 0 1402/LABS UNREMARKABLE EXCEPT FOR ACUTE CYSTITIS WITH HEMATURIA WE WILL BE GIVEN [id number] AND DISCHARGE PATIENT HOME. Medical Decision Making MDM MEDICAL DISCHARGE MAKING BASED ON BASIC LABS AND URINALYSIS. PATIENT HAS A LARGE CYSTITIS WITH HEMATURIA REMAINDER OF LABS UNREMARKABLE GIVEN AUGMENTIN AND ZOFRAN DISCHARGED HOME DX & DISP Disposition: Discharge Departure Impression: Primary Impression: Acute cystitis with hematuria Additional Impression: Nausea and vomiting Condition: Stable Scripts Ondansetron (Ondansetron Odt) 4 Mg Tab.rapdis 4 MG PO Q6HPRN PRN for nausea, #16 TAB 0 Refills Prov: ENDY HARRIS ANNEALER 12/09/24 Amoxicillin/Potassium Clav (Amox Tr-K Clv 875-125 mg Tab) 875 Mg-125 Mg Tablet 1 EACH PO BID for 7 Days, #14 TAB 0 Refills Prov: ENDY HARRIS ANNEALER 12/09/24 Additional Instructions: FOLLOW-UP WITH PRIMARY CARE PROVIDER IN 1 TO 2 DAYS. TAKE MEDICATIONS DIRECTED HERE IN THE EMERGENCY ROOM. OKAY TO CONTINUE HOME MEDICATIONS UNLESS OTHERWISE DISCUSSED DURING YOUR VISIT IN THE EMERGENCY ROOM TODAY. RETURN TO YOUR NEAREST EMERGENCY ROOM IF SYMPTOMS WORSEN OR IF THERE IS NO IMPROVEMENT. CALL 911 IF YOU NEED IMMEDIATE ASSISTANCE. TAKE TYLENOL OR MOTRIN OVER-THE- COUNTER NEEDED AND IF NO CONTRAINDICATIONS ARE PRESENT. INCREASE ORAL HYDRATION. A WOUND CULTURE OR URINE CULTURE WAS ORDERED HERE IN THE EMERGENCY ROOM DEPARTMENT PLEASE FOLLOW-UP WITH PRIMARY CARE PROVIDER AND ADVISE THEM TO GET REPEAT PORTS FROM OUR FACILITY. IF YOU HAD ANY LING WRAP/SPLINTS THAT WERE APPLIED HERE, PLEASE DO NOT REMOVE THEM UNTIL YOU SEE YOUR PRIMARY CARE OR SPECIALTY. TAKE ANTIBIOTICS DIRECTED UNTIL GONE. , INCREASE YOUR WATER INTAKE. , CLEAR LIQUID DIET ONLY FOR THE NEXT18 HOURS AND THEN ADVANCE DIET SLOWLY TO REGULAR. SEE YOUR PRIMARY CARE DOCTOR DOCTOR TO FOLLOW UP Referrals: NONE (PCP) Time of Disposition: 14:50 I have reviewed the case, and I agree with, Diagnosis and Plan I performed the substantive portion of the visit. I have reviewed and personally made and approve the management plan that is documented in the notes by myself or the KYLE. I acknowledge full responsibility for the patient's management plan. ENDY HARRIS NP Dec 09, 2024 12:25 HENRY ESPITIA MD Dec 09, 2024 18:41
[2024-12-09] MEDS: ondanSETRON ODT 4MG TAB SL ONE (12:54)
[2024-12-09 12:56] LABS: BASOPHILS # (AUTO) 0.03 K/uL (0.00-0.20); BASOPHILS % (AUTO) 0.5 % (0.0-5.0); EOSINOPHILS # (AUTO) 0.09 K/uL (0.00-0.70); EOSINOPHILS % (AUTO) 1.5 % (0.0-8.0); HEMATOCRIT 39.3 % (36-48); IMMATURE GRANULOCYTE ABSOLUTE 0.01 K/uL (0-1); LYMPHOCYTES # (AUTO) 1.9 K/uL (1.0-4.8); LYMPHOCYTES % (AUTO) 32.5 % (21.0-51.0); MEAN CORPUSCULAR HEMOGLOBIN 25.9 pg (27.0-33.0); MEAN CORPUSCULAR HGB CONC 32.1 g/dL (32.0-36.0); MEAN CORPUSCULAR VOLUME 80.9 fL (79-99); MONOCYTES # (AUTO) 0.4 K/uL (0.1-1.0); MONOCYTES % (AUTO) 6.7 % (3.0-13.0); NEUTROPHILS # (AUTO) 3.4 K/uL (1.8-7.7); NEUTROPHILS % (AUTO) 58.6 % (40.0-77.0); PLATELET COUNT (AUTO) 281 K/uL (130-400); RED BLOOD CELL COUNT(AUTO) 4.86 MIL/uL (4.00-5.50); RED CELL DISTRIBUTION WIDTH 14.6 % (11.0-15.5); WHITE BLOOD COUNT (AUTO) 5.8 K/uL (4.8-10.8)
[2024-12-09 13:08] LABS: CREATININE 0.7 mg/dL (0.5-1.0); POTASSIUM 3.4 mmol/L (3.5-5.1)
[2024-12-09 13:39] LABS: BILIRUBIN,URINE NEGATIVE (NEGATIVE); COLOR,URINE YELLOW (YELLOW); GLUCOSE, URINE (UA) NEGATIVE (NEGATIVE); KETONES,URINE NEGATIVE (NEGATIVE); LEUKOCYTE ESTERASE ,URINE 250 Leu/uL (NEGATIVE); NITRATE,URINE NEGATIVE (NEGATIVE); OCCULT BLOOD,URINE LARGE (NEGATIVE); PROTEIN,URINE 30 mg/dL (NEGATIVE)
[2024-12-09 13:48] LABS: ADD UA MICROSCOPIC YES; APPEARANCE,URINE HAZY (CLEAR)
[2024-12-09 13:52] LABS: BACTERIA,URINE RARE /HPF (None Seen); MUCUS,URINE MANY LPF (None Seen); RBC,URINE TNTC /HPF (0-1); SQUAMOUS EPITHELIAL CELL,UR FEW /HPF (0-2); WBC,URINE 26-50 /HPF (0-1)
[2024-12-09 13:54] LABS: HCG,QUALITATIVE URINE NEGATIVE (NEGATIVE)
[2024-12-09] MEDS: AMOX/CLAV 875/125MG TAB PO ONE (14:30)
[2024-12-09] MEDS ORDERED: ONDA-243 PO (14:51)
[2024-12-09 15:43] VITALS: BP 101/63; PULSE 98; RESP 20; TEMP 99.8; O2SAT 99
== END 2024-12-09 15:46 | disposition home or self-care (01) ==
LOC: EDH 12:10
DX: N30.01 Acute cystitis with hematuria (principal); R11.2 Nausea with vomiting, unspecified; R19.7 Diarrhea, unspecified; Z87.442 Personal history of urinary calculi; Z90.49 Acquired absence of other specified parts of digestive tract; Z79.899 Other long term (current) drug therapy
CPT/HCPCS: 36415; 80048; 81001; 81025; 83690; 85025; 87086; 99283

== ENCOUNTER 2025-03-14 16:53 | Observation (INO) | payer SELFPAY ==
[~2025-03-14] VITALS: Ht 170.2 cm; Wt 90.7 kg
[~2025-03-14 16:53] MED LIST changes: +ALBUHFA IH; +ONDA-243 PO
[2025-03-14 17:53] LABS: BASOPHILS # (AUTO) 0.03 K/uL (0.00-0.20); BASOPHILS % (AUTO) 0.4 % (0.0-5.0); EOSINOPHILS # (AUTO) 0.02 K/uL (0.00-0.70); EOSINOPHILS % (AUTO) 0.3 % (0.0-8.0); HEMATOCRIT 36.1 % (36-48); IMMATURE GRANULOCYTE ABSOLUTE 0.02 K/uL (0-1); LYMPHOCYTES # (AUTO) 0.9 K/uL (1.0-4.8); LYMPHOCYTES % (AUTO) 12.2 % (21.0-51.0); MEAN CORPUSCULAR HEMOGLOBIN 25.9 pg (27.0-33.0); MEAN CORPUSCULAR HGB CONC 32.4 g/dL (32.0-36.0); MEAN CORPUSCULAR VOLUME 79.9 fL (79-99); MONOCYTES # (AUTO) 0.7 K/uL (0.1-1.0); MONOCYTES % (AUTO) 9.3 % (3.0-13.0); NEUTROPHILS # (AUTO) 5.5 K/uL (1.8-7.7); NEUTROPHILS % (AUTO) 77.5 % (40.0-77.0); PLATELET COUNT (AUTO) 204 K/uL (130-400); RED BLOOD CELL COUNT(AUTO) 4.52 MIL/uL (4.00-5.50); RED CELL DISTRIBUTION WIDTH 15.6 % (11.0-15.5); WHITE BLOOD COUNT (AUTO) 7.1 K/uL (4.8-10.8)
[2025-03-14 18:09] LABS: CREATININE 0.6 mg/dL (0.5-1.0); POTASSIUM 3.9 mmol/L (3.5-5.1)
[2025-03-14 18:14] LABS: ALBUMIN 3.7 g/dL (3.5-5.0); BILIRUBIN,DIRECT 0.2 mg/dL (0.0-0.3); BILIRUBIN,TOTAL 0.6 mg/dL (0.2-1.0); TOTAL PROTEIN, SERUM 7.5 g/dL (6.0-8.3)
--- NOTE | 2025-03-14 19:14 | HMCIMG ---
US ABDOMINAL RUQ\E\LTD HISTORY: Right upper quadrant pain COMPARISON: None TECHNIQUE: Right upper quadrant abdominal ultrasound study was performed. FINDINGS: Liver measures 14.6 cm. The visualized portion of the pancreas is within normal limits. Liver is echogenic consistent with liver parenchymal disease. Gallbladder has been removed. Common duct measures 3 mm. Right kidney measures 9.4 x 4 x 4.2 cm. No hydronephrosis is seen of the right kidney. IMPRESSION: 1. Postcholecystectomy. No ductal dilatation is seen. 2. No hydronephrosis is seen.
[2025-03-14 19:51] LABS: APPEARANCE,URINE CLOUDY (CLEAR); BILIRUBIN,URINE 0.5 mg/dL (NEGATIVE); COLOR,URINE DARK-YELLOW (YELLOW); GLUCOSE, URINE (UA) NEGATIVE (NEGATIVE); KETONES,URINE 10 mg/dL (NEGATIVE); LEUKOCYTE ESTERASE ,URINE 500 Leu/uL (NEGATIVE); NITRATE,URINE NEGATIVE (NEGATIVE); OCCULT BLOOD,URINE NEGATIVE (NEGATIVE); PROTEIN,URINE 30 mg/dL (NEGATIVE); UROBILINOGEN,URINE 6 mg/dL (0.2-1.0)
[2025-03-14 19:56] LABS: AMPHET/METH SCREEN,URINE NEGATIVE (NEGATIVE); BARBITURATE SCREEN, URINE NEGATIVE (NEGATIVE); BENZODIAZEPINES SCREEN,URINE NEGATIVE (NEGATIVE); CANNABINOID SCREEN,URINE POSITIVE (NEGATIVE); COCAINE SCREEN,URINE POSITIVE (NEGATIVE); OPIATE SCREEN,URINE NEGATIVE (NEGATIVE); PHENCYCLIDINE SCREEN,URINE NEGATIVE (NEGATIVE)
[2025-03-14 19:58] LABS: HCG,QUALITATIVE URINE NEGATIVE (NEGATIVE)
[2025-03-14 20:07] LABS: BACTERIA,URINE RARE /HPF (None Seen); MUCUS,URINE MOD LPF (None Seen); NON-SQUAMOUS EPITHELIAL CELL 1 /HPF (0-2); OTHER CASTS, URINE 3 /LPF (None Seen); SQUAMOUS EPITHELIAL CELL,UR FEW /HPF (0-2); WBC,URINE 26-50 /HPF (0-1)
[2025-03-14] MEDS: cefTRIAXone 1G VIAL IM ONE (20:30)
[2025-03-14] MEDS: ketOROlac 15MG/ML VIAL (15MG/ML) IM ONE (20:31)
[2025-03-14] MEDS: LIDOCAINE HCL 1% 20 ML VIAL ONE (20:31)
--- NOTE | 2025-03-14 20:38 | ERN ---
General Chief Complaint: Abdominal Pain Stated Complaint: ABDONIMAL PAIN/VOMITTING SINCE LAST NIGHT Time Seen by MD: 16:59 Time Seen by Midlevel: 16:59 Source: patient History of Present Illness Initial Comments 25-year-old female who presents to the emergency department due to abdominal pain onset last night. Patient reports nausea, vomiting, diarrhea but denies any fever, dysuria, hematuria or further associated symptoms. Patient states she had her gallbladder removed eight years ago. Describes the pain at the right upper abdomen the same as two prior to cholecystectomy. She took Zofran prior to arrival. Denies significant past medical history. Allergies: Coded Allergies: No Known Drug Allergies (Verified Allergy, 01/11/14) Home Meds Active Scripts Amoxicillin/Potassium Clav (Amox Tr-K Clv 875-125 mg Tab) 875 Mg-125 Mg Tablet, 1 EACH PO BID for 5 Days, #10 TAB 0 Refills Prov:MALIKA BRAUN MD 01/11/25 Albuterol Sulfate (Ventolin Hfa/Proventil Hfa/Proair Hfa) 90 Mcg Puff, 1 PUFF IH Q4H PRN for SHORTNESS OF BREATH for 5 Days, #1 INH 0 Refills PHARMACY TO DISPENSE 1 INHALER FOR USE Prov:MALIKA BRAUN MD 01/11/25 Ondansetron (Ondansetron Odt) 4 Mg Tab.rapdis, 4 MG PO Q6HPRN PRN for nausea, #16 TAB 0 Refills Prov:ENDY HARRIS NP 12/09/24 Amoxicillin/Potassium Clav (Amox Tr-K Clv 875-125 mg Tab) 875 Mg-125 Mg Tablet, 1 EACH PO BID for 7 Days, #14 TAB 0 Refills Prov:ENDY HARRIS NP 12/09/24 Amoxicillin/Potassium Clav (Amox Tr-K Clv 875-125 mg Tab) 875 Mg-125 Mg Tablet, 1 EACH PO BID for 7 Days, #14 TAB 0 Refills Prov:ENDY HARRIS NP 07/26/24 Dicyclomine HCl (Bentyl) 20 Mg Tab, 1 TAB PO QID for irritable bowel symptoms, #30 TAB 0 Refills ONE TABLET BY MOUTH EVERY 6 HOURS P.R.N. PAIN Prov:ENDY HARRIS NP 07/26/24 Ibuprofen (Motrin/Advil) 800 Mg Tab, 800 MG PO TID, #30 TAB Prov:WOODY MADSEN MD 11/26/23 Gabapentin (Neurontin) 300 Mg Capsule, 300 MG PO TID, #60 CAP Prov:WOODY MADSEN MD 11/26/23 Cyclobenzaprine HCl (Cyclobenzaprine HCl) 10 Mg Tablet, 10 MG PO TID, #60 TAB Prov:WOODY MADSEN MD 11/26/23 Metoclopramide HCl (Reglan) 10 Mg Tablet, 10 MG PO QIDP PRN for NAUSEA, #30 TAB 2 Refills Prov:DANUTA CRUZ Sr., MD 07/14/23 Cephalexin Monohydrate (Keflex) 500 Mg Cap, 500 MG PO QID for 10 Days, #40 CAP 0 Refills Prov:DANUTA CRUZ Sr., MD 07/14/23 Acetaminophen with Codeine (Acetaminophen-Cod #3 Tablet) 1 Each Tablet, 1 TAB PO Q6H PRN for PAIN LEVEL 7 TO 10, #15 TAB Prov:JEANETTE POWERS MD 06/06/22 Ibuprofen (Ibuprofen) 600 Mg Tablet, 600 MG PO Q6H PRN for PAIN, #30 TAB Prov:JEANETTE POWERS MD 06/06/22 Past Medical History Past Medical History: No Pertinent History Medical History Other: KIDNEY STONES Past Surgical History: Cholecystectomy, Other Surgical History Other: tube in ears Family History Family History: Negative Social History Social History: ETOH, Lives with family Female( History) History: Not Applicable LMP: February 21, 2025 : 6 Para: 6 Aborts: 0 ROS Dictation Constitutional: Negative for fever,chills, and weight loss Eyes: Negative for injury, pain,redness, and discharge ENT: Negative for injury,pain or swelling Cardiovascular: Negative for chest pain, palpitations, and edema Respiratory: Negative for shortness of breath, cough, and wheezing, Abdomen/GI: Positive for abdominal pain, nausea, vomiting, diarrhea Back: Negative for injury and pain : Negative for painful urination, bleeding or discharge MS/Extremity: Negative for injury and deformity Skin: Negative for rash, and discoloration Neuro: Negative for headache, weakness, numbness, tingling, and seizure Psych: Negative for suicide ideation, homicidal ideation, and hallucinations Physical Exam Physical Exam Dictation General: awake, alert, no acute distress Head/Face: Normocephalic, atraumatic Eyes: PERRL, EOMI, normal conjunctiva ENT: oral cavity clear, oral mucosa moist Neck: Supple, normal range of motion Cardiovascular: RRR, normal S1/S2 Respiratory: CTAB, no respiratory distress, no rales or wheezes Abdomen: Soft, right upper quadrant tenderness, non-distended, no guarding or rebound. Skin: Warm, dry, normal turgor, no rash MS/Extremity: Pulses equal, no cyanosis, neurovascular intact, FROM Neuro: COAx4, GCS 15, strength 5/5, CN 2-12 intact, normal cerebellar exam, normal gait Psych: Normal behavior, mood, and affect normal Results Laboratory and Microbiology Lab and Micro Result Labs Reviewed?: Yes MDM MDM: Differential diagnosis: Choledocholithiasis, UTI, gastroenteritis Rationale: 25-year-old female who presents to the emergency department due to abdominal pain onset last night. Patient reports nausea, vomiting, diarrhea but denies any fever, dysuria, hematuria or further associated symptoms. Patient st [facility] she had her gallbladder removed eight years ago. Describes the pain at the right upper abdomen the same as two prior to cholecystectomy. She took Zofran prior to arrival. Denies significant past medical history. Per physical examination patient has mild right upper quadrant tenderness. Labs obtained indicate no elevated WBCs, hemoglobin 11.7, AST 243, ALT 162. UA positive for urinary tract infection with 500 leukocyte esterase and 26-50 WBCs. Urine drug screen positive for cocaine and marijuana. Ketorolac, and Rocephin administered in the ED. Right upper quadrant ultrasound obtained with findings consistent with postcholecystectomy, no ductal dilation, no hydronephrosis. Patient was educated on findings, diagnosis, decision for admission. Patient verbalized understanding and agrees with admission. Case discussed with catalyst who accepts admission. Previous outside records reviewed: Old ER visits. Risk of complication and/or morbidity or mortality of patient management: None Medications-Per medication reconciliation Need for hospitalization: Patient does meet criteria for hospitalization. Need for emergency major/minor surgery: No There are no social concerns with this patient. Prescription drug management Prescriptions will include symptomatic care Patient's prior external medical records from other ER visits were reviewed by me as indicated. Prior testing and results from previous visits were reviewed. Prior tests were taken into account with medical decision making and resource utilization, independent historian/historians were used to obtain complete medical history. I independently interpreted the test that were performed, results were reviewed by me and considered findings on radiology if ordered. Medical management and examination interpretation discussions were had by me with other qualified healthcare professionals as indicated for the patient's care. ED Course DX & DISP Disposition: Inpatient Decision to Admit Date: Mar 14, 2025 Departure Impression: Primary Impression: Elevated LFTs Additional Impressions: UTI (urinary tract infection), Substance abuse Condition: Stable Referrals: SELF,REFERRAL (PCP) I performed the substantive portion of the visit. I have reviewed and personally made and approve the management plan that is documented in the notes by myself or the KYLE. I acknowledge full responsibility for the patient's management plan. ROBERTO WALSH Mar 14, 2025 20:37
--- NOTE | 2025-03-14 20:57 | HP ---
[facility] HISTORY AND PHYSICAL Date of Service: Mar 14, 2025 Time of Service: 20:57 Attending/supervising physicians: Dr. Chung and Dr. Rea HISTORY OF PRESENT ILLNESS: Ms. Acosta is a 25-year-old female with history of GERD and kidney stones who presented to [facility] ED for evaluation of abdominal pain onset last night. Patient reported nausea, vomiting, diarrhea but denies any fever, dysuria, hematuria or further associated symptoms. Patient stated she had her gallbladder removed eight years ago. Describes the pain at the right upper abdomen the same as two prior to cholecystectomy. She took Zofran prior to arrival. The patient is six, para six. The patient has had multiple visits to ED (28 visits). She will see her on 12/09/2024, 01/11/25, and today 03/14/2025. AST 243, ALT 162, UA is positive for leuk EST, ketones, protein, bilirubin, urobilinogen. UDS: Positive for cocaine and marijuana. Right upper quadrant sonogram: 1. Postcholecystectomy. No ductal dilatation is seen. 2. No hydronephrosis is seen. In ED the patient received Rocephin1 g IV, [id number] mg IM, viscous lidocaine. ED provider request patient be admitted with the diagnosis of elevated LFTs, UTI, substance abuse. I assessed the patient at bedside in hallway A2. The patient appeared comfortable breathing was even, unlabored, in no distress. Patient reports she used to take a lot of tramadol in the past which she believes might contribute to the elevated liver enzymes. I informed patient of labs, diagnostics, and plan of care. Education done on cocaine and marijuana cessation. The patient verbalized understanding and is in agreement with the plan. Plan and assessment are listed below. REVIEW OF SYSTEMS 12-point ROS reviewed with patient. All pertinent positives mentioned above. Otherwise negative, noncontributory, non-pertinent. PAST MEDICAL HISTORY: As mentioned above PAST SURGICAL HISTORY: Cholecystectomy, BMT PAST SOCIAL HISTORY: Illicit drugs: Positive marijuana and cocaine abuse. Alcohol use: Occasional Denied tobacco use. FAMILY HISTORY: Noncontributory Coded Allergies: No Known Drug Allergies (Verified Allergy, 01/11/14) PHYSICAL EXAM GENERAL APPEARANCE: The patient is awake, alert, and oriented, in no acute cardiopulmonary distress. NEUROLOGICAL: Cranial nerves II-XII grossly intact. Motor is 5/5 in bilateral upper and lower extremities proximal to distal. No sensory deficits. HEENT: Face is symmetric. Pupils are equal and reactive. Extraocular movements are intact. NECK: Supple. No JVD. No thyromegaly. No submental, submandibular, pre- /postauricular, occipital or supraclavicular lymphadenopathy. CHEST: Normal chest expansion. No Telemetry. LUNGS: Absence of any rales, rhonchi or any wheezing. CARDIOVASCULAR: Regular. S1 and S2 normal. No appreciable rubs, murmurs or gallops. ABDOMEN: Soft, nontender, and nondistended. There is no rebound, voluntary guarding, or rigidity. Obese. : Deferred. No [place]. EXTREMITIES: Non-edematous and not cyanotic. No clubbing. Good capillary refill. SKIN: No skin breakdown. Vital Sign (Last 24 Hours) 03/14/25 17:40 Temp 99.0 Pulse 97 Resp 16 B/P (MAP) 104/64 Pulse Ox 96 O2 Delivery Room Air* O2 Flow Rate 0 FiO2 21 LABS: Laboratory: Test 03/14/25 19:40 03/14/25 17:34 Range/Units Urine Color DARK-YELLOW YELLOW Urine Appearance CLOUDY H CLEAR Urine pH 6.0 5.0-8.0 Urine Specific [place] 1.031 1.001-1.031 Urine Protein 30 H NEGATIVE mg/dL Urine Glucose (UA) NEGATIVE NEGATIVE mg/dL Urine Ketones 10 H NEGATIVE mg/dL Urine Occult Blood NEGATIVE NEGATIVE Urine Nitrate NEGATIVE NEGATIVE Urine Bilirubin 0.5 H NEGATIVE mg/dL Urine Urobilinogen 6 H 0.2-1.0 mg/dL Urine Leukocyte Esterase 500 H NEGATIVE [place]/uL Urine RBC 11-25 H 0-1 /HPF Urine WBC 26-50 H 0-1 /HPF Urine Squamous Epithelial Cells FEW 0-2 /HPF Urine Non-Squamous Epithelial Cells 1 0-2 /HPF Urine Bacteria RARE None Seen /HPF Urine Other Casts 3 None Seen /LPF Urine HCG, Qualitative NEGATIVE NEGATIVE Urine Opiates Screen NEGATIVE NEGATIVE Urine Barbiturates Screen NEGATIVE NEGATIVE Urine Phencyclidine Screen NEGATIVE NEGATIVE Urine Amphetamines Screen NEGATIVE NEGATIVE Urine Benzodiazepines Screen NEGATIVE NEGATIVE Urine Cocaine Screen POSITIVE H NEGATIVE Urine Marijuana (THC) Screen POSITIVE H NEGATIVE White Blood Count 7.1 4.8-10.8 K/uL Red Blood Count 4.52 4.00-5.50 MIL/uL Hemoglobin 11.7 L 12.0-16.0 g/dL Hematocrit 36.1 36-48 % Mean Corpuscular Volume 79.9 79-99 fL Mean Corpuscular Hemoglobin 25.9 L 27.0-33.0 pg Mean Corpuscular Hemoglobin Concent 32.4 32.0-36.0 g/dL Red Cell Distribution Width 15.6 H 11.0-15.5 % Platelet Count 204 130-400 K/uL Mean Platelet Volume 10.5 7.5-10.5 fL Immature Granulocyte % (Auto) 0.3 0-1 % Neutrophils (%) (Auto) 77.5 H 40.0-77.0 % Lymphocytes (%) (Auto) 12.2 L 21.0-51.0 % Monocytes (%) (Auto) 9.3 3.0-13.0 % Eosinophils (%) (Auto) 0.3 0.0-8.0 % Basophils (%) (Auto) 0.4 0.0-5.0 % Neutrophils # (Auto) 5.5 1.8-7.7 K/uL Lymphocytes # (Auto) 0.9 L 1.0-4.8 K/uL Monocytes # (Auto) 0.7 0.1-1.0 K/uL Eosinophils # (Auto) 0.02 0.00-0.70 K/uL Basophils # (Auto) 0.03 0.00-0.20 K/uL Absolute Immature Granulocyte (auto 0.02 0-1 K/uL Nucleated Red Blood Cells 0.0 0.0-0.19 % Sodium Level 140 136-145 mmol/L Potassium Level 3.9 3.5-5.1 mmol/L Chloride Level 105 101-111 mmol/L Carbon Dioxide Level 27 21-32 mmol/L Blood Urea Nitrogen 11 7-18 mg/dL Creatinine 0.6 0.5-1.0 mg/dL Glomerular Filtration Rate Calc 126 >90 mL/min Random Glucose 88 70-105 mg/dL Total Calcium 8.6 8.5-10.1 mg/dL Total Bilirubin 0.6 0.2-1.0 mg/dL Direct Bilirubin 0.2 0.0-0.3 mg/dL Aspartate Amino Transf (AST/SGOT) 243 H 10-37 U/L Alanine Aminotransferase (ALT/SGPT) 162 H 12-78 U/L Alkaline Phosphatase 118 50-136 U/L Total Protein 7.5 6.0-8.3 g/dL Albumin 3.7 3.5-5.0 g/dL Lipase 20 16-77 U/L Serum Alcohol < 3 0-10 mg/dL DIAGNOSTICS / RADIOLOGY: [ ] ASSESSMENT: Acute complicated cystitis, POA Transaminitis, POA (elevated AST 243 and ALT 162) Acute on chronic abdominal pain, secondary to above Substance abuse, UDS positive cocaine and marijuana GERD Anemia Obesity, BMI 31.3 Multiple ED visits (28 visits) PLAN: -Admit to medical floor. -Continue Rocephin 2 g IV daily. -Start LR at 100 mL an hour. -Monitor liver and renal function. -Avoid hepatotoxic medications. -Pepcid 20 mg p.o. b.i.d.. -Consult GI. -p.r.n. medications for: Pain management, nausea, vomiting, constipation, hypertension, fever. -Education on cocaine and marijuana cessation. -Education on avoiding hepatotoxic medications. -Glucometer checks AC & HS needed with insulin regular sliding scale coverage as needed. -Monitor respirations. Oxygen therapy as needed. Titrate oxygen prn to keep Spo2>/+=92%. -Blood pressure checks every 4 hours -Monitor electrolytes and treat accordingly. -GI and DVT prophylaxis: Pepcid and Lovenox -AM labs. -Additional orders per hospital course. ADVANCED CARE PLANNING 1. Which of the following were discussed? Hospice Care - No Therapeutic options - Yes Advance Directives - Yes Other discussions - 2. Discussed with who? Patient 3. Voluntary nature of this service was explained to the patient? Yes 4. Amount of time spent - __ Over 40 minutes 5. Reviewed by Physician? (if this service was performed by KYLE) Yes ATTESTATION BY PHYSICIAN I have seen and examined the patient. I reviewed the documentation, medical decision making, and treatment plan as noted by the mid-level provider above. I agree with the findings and plan of care. JOSE ALFREDO COMER [facility] Mar 14, 2025 20:57
[2025-03-14] MEDS: LACTATED RINGERS 1000ML 1,000 ML IV SCH (23:14)
[2025-03-15] MEDS ORDERED: acetaMINOPHEN 650 MG SUPPOSITORY RC PRN (00:30)
[2025-03-15] MEDS ORDERED: ketOROlac 30MG VIAL (30MG/ML) IVP PRN (00:30)
[2025-03-15] MEDS ORDERED: TEMAZepam 15 MG CAPSULE PO PRN (00:30)
[2025-03-15] MEDS ORDERED: doCUSate SODIUM 100 MG CAP PO PRN (00:30)
[2025-03-15] MEDS ORDERED: ondanSETRON 4MG INJ IVP PRN (00:30)
[2025-03-15] MEDS ORDERED: LACTULOSE 20 GM/30 ML UDCUP PO PRN (00:30)
[2025-03-15] MEDS ORDERED: LAbetaLOL 20MG SYG IV PRN (00:30)
[2025-03-15] MEDS: acetaMINOPHEN 325 MG TAB PO PRN (06:49)
[2025-03-15] MEDS: cefTRIAXone 2GM VIAL IVPB SCH (06:50)
--- NOTE | 2025-03-15 07:06 | NUR ---
REPORT GIVEN TO GENEVA VIGIL AT THIS TIME
[2025-03-15] MEDS: INSULIN humuLIN R 100 UNIT/ML 3ML SQ SCH (07:30)
--- NOTE | 2025-03-15 08:48 | HMCIMG ---
Exam Type: CT ABDOMEN/PELVIS W/O CONTRAST Clinical Information: severe abdominal pain/ elevated liver enzymes Comparison: None CT Dose Index (CTDI): 10.20 mGy Dose Length Product (DLP): 530.00 total mGy-cm PROTOCOL: Routine noncontrast helical scanning of the abdomen and pelvis was performed at 5mm collimation. Findings: No evidence of nephro or ureterolithiasis is found. No hydronephrosis or ureteral dilatation is seen. The lung bases are clear. The stomach is unremarkable. It shows no wall thickening. No gross ulceration is seen. It is not overly distended. There are no surrounding inflammatory changes. No wall lesions are identified to suggest cancer. The spleen is unremarkable. It is not enlarged. The pancreas shows normal anatomy. It is not fatty replaced. It shows no lesions. The pancreatic duct is not dilated. The gallbladder is surgically absent. The adrenal glands are unremarkable. There is no enlargement. No lesions are noted. The liver is unremarkable. It shows no focal masses. The appendix is unremarkable. It shows no evidence of inflammation. No appendicolith is seen. The small bowel is unremarkable. There is no evidence of dilatation to suggest obstruction. No evidence of adynamic ileus is seen. There is no small bowel wall thickening to suggest enteritis. The colon is unremarkable. The urinary bladder is unremarkable. There is no wall thickening to suggest tumor or inflammation. There are no intraluminal calculi. There are no diverticula. There is no evidence of chronic bladder outlet obstruction. There is no evidence of urinary bladder distention to suggest urinary retention. The other pelvic structures are unremarkable. The bony and vascular structures are unremarkable for the patient's age. IMPRESSION: NO RENAL STONES. NO ACUTE PATHOLOGY OR INFLAMMATION SEEN. This study was performed using dose reduction techniques to include automated exposure control and/or adjustment of the mA and/or kV according to patient size.
[2025-03-15] MEDS: FAMOTIDINE 20MG TAB PO SCH (08:50)
[2025-03-15] MEDS: ENOXAPARIN SODIUM 40 MG/0.4 ML SYRINGE SQ SCH (08:50)
--- NOTE | 2025-03-15 10:11 | NUR ---
DCP: HOME Pt currently lives with her mom Lawanda Cook [phone]. Pt receives $700 in [employer] Pt has 6 children. Pt does not have DME, home health, or provider services. Pt states that she has been referred to substance abuse treatment through CPS and Probation and states that she already did the initial appointment for substance abuse services and needs to schedule next set of appointments. Pt was not interested in resources for substance abuse. SW did provide community resources for medical attention. At [place] pt will go home and family can assist with transportation. Addendum: 03/15/25 at 1014 by RACHAEL VILLALBA Amended: Links added.
--- NOTE | 2025-03-15 10:19 | NUR ---
PT STATES NO HOME MEDICATIONS, STATES SHE IS SUPPOSED TO BE TAKING IRON PILLS BUT STOPPED A WEEK AGO.
--- NOTE | 2025-03-15 12:18 | CONS ---
GASTROENTEROLOGY CONSULTATION NOTE Date of Consultation: Mar 15, 2025 Time of Consultation: 12:18 History of Present Illness: This is a 25-year-old female with past medical history of GERD and kidney stones who presented due to abdominal pain with nausea, vomiting and diarrhea. She has a history of cholecystectomy 8 years ago. She has had multiple ER visits 28 visits in the past and this year being December and March. Upon further evaluation she tested positive for cocaine and marijuana on UDS. She has transaminitis with AST of 243 and ALT of 162 otherwise in normal bilirubin and alkaline phos. Lipase normal at 20. WBC 7.1, hemoglobin 11.7 with a platelet count of 204. Abdominal ultrasound was done which revealed postcholecystectomy and no ductal dilation. CT abdomen and pelvis negative. Review of Systems: CONSTITUTIONAL: No malaise or change in sensation of wellbeing. ENMT: No rhinorrhea, otorrhea, sinus pain, ear ache. CARDIOVASCULAR: No angina, palpitations, orthopnea or paroxysmal dyspnea. RESPIRATORY: No SOB. GASTROINTESTINAL: No abdominal pain, nausea, vomiting, diarrhea, hematemesis, melena or change in the patient's habitual bowel movements consistency/number. GENITOURINARY: No dysuria, hematuria or change in bladder continence. MUSCULOSKELETAL: No new muscle pain or decrease in muscular strength. No new joint swelling, redness or tenderness. SKIN: No new rash. Past Medical History: PAST MEDICAL HISTORY: As mentioned above PAST SURGICAL HISTORY: Cholecystectomy, BMT PAST SOCIAL HISTORY: Illicit drugs: Positive marijuana and cocaine abuse. Alcohol use: Occasional Denied tobacco use. FAMILY HISTORY: Noncontributory Coded Allergies: No Known Drug Allergies (Verified Allergy, 01/11/14) Physical Exam: GEN: Awake, alert, oriented in person, time and place, and in no acute distress. HEENT: No sinus tenderness. Tympanic membranes were not examined. No rhinorrhea. Oral pharyngeal mucosa is pink, moist and within normal limits. Neck is supple with no cervical lymphadenopathy, thyromegaly or JVD. CHEST: Inspection, palpation and percussion of the chest were unremarkable. Lung auscultation revealed normal breath sounds bilaterally. CARDIAC: PMI is within normal limits. Heart sounds are regular. Normal S1, S2. No gallop or murmur. ABD: Soft, non-tender and not distended. No peritoneal signs on palpation. No organomegaly. Normal bowel sounds. EXT: No cyanosis or clubbing. No edema. SKIN: Intact. No rashes. JOINTS: No evidence of synovitis or acute arthritis. NEURO: Alert and oriented to name, place and person. Cranial nerve examination is unremarkable. No focal motor deficits. Normal speech. Gait is normal. Strength is normal. Vital Sign (Last 24 Hours) 03/15/25 11:43 Temp 97.5 Pulse 71 Resp 12 B/P (MAP) 98/57 Pulse Ox 96 O2 Delivery Room Air* O2 Flow Rate 0 FiO2 21 Laboratory: [ ] Laboratory: Test 03/14/25 19:40 03/14/25 17:34 Range/Units Urine Color DARK-YELLOW YELLOW Urine Appearance CLOUDY H CLEAR Urine pH 6.0 5.0-8.0 Urine Specific [place] 1.031 1.001-1.031 Urine Protein 30 H NEGATIVE mg/dL Urine Glucose (UA) NEGATIVE NEGATIVE mg/dL Urine Ketones 10 H NEGATIVE mg/dL Urine Occult Blood NEGATIVE NEGATIVE Urine Nitrate NEGATIVE NEGATIVE Urine Bilirubin 0.5 H NEGATIVE mg/dL Urine Urobilinogen 6 H 0.2-1.0 mg/dL Urine Leukocyte Esterase 500 H NEGATIVE [place]/uL Urine RBC 11-25 H 0-1 /HPF Urine WBC 26-50 H 0-1 /HPF Urine Squamous Epithelial Cells FEW 0-2 /HPF Urine Non-Squamous Epithelial Cells 1 0-2 /HPF Urine Bacteria RARE None Seen /HPF Urine Other Casts 3 None Seen /LPF Urine HCG, Qualitative NEGATIVE NEGATIVE Urine Opiates Screen NEGATIVE NEGATIVE Urine Barbiturates Screen NEGATIVE NEGATIVE Urine Phencyclidine Screen NEGATIVE NEGATIVE Urine Amphetamines Screen NEGATIVE NEGATIVE Urine Benzodiazepines Screen NEGATIVE NEGATIVE Urine Cocaine Screen POSITIVE H NEGATIVE Urine Marijuana (THC) Screen POSITIVE H NEGATIVE White Blood Count 7.1 4.8-10.8 K/uL Red Blood Count 4.52 4.00-5.50 MIL/uL Hemoglobin 11.7 L 12.0-16.0 g/dL Hematocrit 36.1 36-48 % Mean Corpuscular Volume 79.9 79-99 fL Mean Corpuscular Hemoglobin 25.9 L 27.0-33.0 pg Mean Corpuscular Hemoglobin Concent 32.4 32.0-36.0 g/dL Red Cell Distribution Width 15.6 H 11.0-15.5 % Platelet Count 204 130-400 K/uL Mean Platelet Volume 10.5 7.5-10.5 fL Immature Granulocyte % (Auto) 0.3 0-1 % Neutrophils (%) (Auto) 77.5 H 40.0-77.0 % Lymphocytes (%) (Auto) 12.2 L 21.0-51.0 % Monocytes (%) (Auto) 9.3 3.0-13.0 % Eosinophils (%) (Auto) 0.3 0.0-8.0 % Basophils (%) (Auto) 0.4 0.0-5.0 % Neutrophils # (Auto) 5.5 1.8-7.7 K/uL Lymphocytes # (Auto) 0.9 L 1.0-4.8 K/uL Monocytes # (Auto) 0.7 0.1-1.0 K/uL Eosinophils # (Auto) 0.02 0.00-0.70 K/uL Basophils # (Auto) 0.03 0.00-0.20 K/uL Absolute Immature Granulocyte (auto 0.02 0-1 K/uL Nucleated Red Blood Cells 0.0 0.0-0.19 % Sodium Level 140 136-145 mmol/L Potassium Level 3.9 3.5-5.1 mmol/L Chloride Level 105 101-111 mmol/L Carbon Dioxide Level 27 21-32 mmol/L Blood Urea Nitrogen 11 7-18 mg/dL Creatinine 0.6 0.5-1.0 mg/dL Glomerular Filtration Rate Calc 126 >90 mL/min Random Glucose 88 70-105 mg/dL Total Calcium 8.6 8.5-10.1 mg/dL Total Bilirubin 0.6 0.2-1.0 mg/dL Direct Bilirubin 0.2 0.0-0.3 mg/dL Aspartate Amino Transf (AST/SGOT) 243 H 10-37 U/L Alanine Aminotransferase (ALT/SGPT) 162 H 12-78 U/L Alkaline Phosphatase 118 50-136 U/L Total Protein 7.5 6.0-8.3 g/dL Albumin 3.7 3.5-5.0 g/dL Lipase 20 16-77 U/L Serum Alcohol < 3 0-10 mg/dL Current Medications Medications (Trade) Dose Ordered Sig/Devan Route PRN Reason Start Time Stop Time Status Last Admin Dose Admin Acetaminophen (TYLenol 325MG TAB) 650 mg Q6H PRN PO FEVER/MILD PAIN LEVEL 1-3 03/15/25 00:30 04/14/25 00:29 03/15/25 06:49 650 MG Acetaminophen (TYLenol 650MG SUPPOSITORY) 650 mg Q6H PRN RC FEVER / MILD PAIN 1-3 IF NPO 03/15/25 00:30 04/14/25 00:29 Ceftriaxone Sodium (Rocephin 2gm Inj) 2 gm DAILY06 IVPB 03/15/25 06:00 03/25/25 05:59 03/15/25 06:50 2 GM Docusate Sodium (COLace 100MG CAP) 100 mg BID PRN PO CONSTIPATION 03/15/25 00:30 04/14/25 00:29 Enoxaparin Sodium (Lovenox) 40 mg DAILY SQ 03/15/25 09:00 04/14/25 08:59 03/15/25 08:50 40 MG Famotidine (Pepcid 20mg Tab) 20 mg BID PO 03/15/25 09:00 04/14/25 08:59 03/15/25 08:50 20 MG Insulin Human Regular (humuLIN R 100 UNIT/ML 3ML) INSULIN SLIDING SCAL... ACHS SQ 03/15/25 07:30 04/14/25 07:29 Ketorolac Tromethamine (toRADol) 30 mg Q6H PRN IVP SEVERE PAIN (7-10) 03/15/25 00:30 03/20/25 00:29 Labetalol HCl (TRANdate 20MG SYG) 10 mg Q2H PRN IV SBP GREATER THAN 160 03/15/25 00:30 04/14/25 00:29 Lactated Ringer's 1,000 ml @ 100 mls/hr Q10H IV 03/14/25 23:00 04/13/25 22:59 03/15/25 08:51 100 MLS/HR Lactulose (Constulose 20gm/ 30ml Udcup) 20 gm Q6H PRN PO CONSTIPATION 03/15/25 00:30 04/14/25 00:29 Ondansetron HCl (zoFRAN 4MG INJ) 4 mg Q6H PRN IVP NAUSEA/VOMITING 03/15/25 00:30 04/14/25 00:29 Temazepam (restORIL 15 MG CAP) 15 mg HS PRN PO INSOMNIA/SLEEP 03/15/25 00:30 04/14/25 00:29 Diagnostics / Radiology: [COPY/PASTE HERE IF NO REPORTS PLEASE DELETE SECTION] Assessment: Abdominal pain N/V Abnormal LFTs Drug abuse Plan: Obtain liver serologies FREDIS DODSON [employer] Mar 15, 2025 12:18
[2025-03-15 13:04] LABS: INR 1.09 (0.85-1.15); PROTHROMBIN TIME 11.5 SEC (9.6-11.6)
[2025-03-15 13:11] LABS: % IRON SATURATION 5.5 % (22-44)
--- NOTE | 2025-03-15 14:34 | DS ---
Discharge Summary Hospital Course Summary: Patient Information: *Name: Dave Cortes *Date of :[birth year] *Admission Date: 03/14/25 *Discharge Date: 03/15/25 Attending Physician:Dr Alexy Faust Admitting Diagnosis: Transaminitis, Substance abuse. Urinary Tract Infection. Course in Hospital:his is a 25-year-old female with past medical history of GERD and kidney stones who presented due to abdominal pain with nausea, vomiting and diarrhea. She has a history of cholecystectomy 8 years ago. She has had multiple ER visits 28 visits in the past and this year being December and March. Upon further evaluation she tested positive for cocaine and marijuana on UDS. She has transaminitis with AST of 243 and ALT of 162 otherwise in normal bilirubin and alkaline phos. Lipase normal at 20. WBC 7.1, hemoglobin 11.7 with a platelet count of 204. Abdominal ultrasound was done which revealed postcholecystectomy and no ductal dilation. CT abdomen and pelvis negative. Patient was positive for a UTI. Received a dose of Ceftriaxone 1g IV. Over the course of her hospitalization, her symptoms improved significantly. Denies any abdominal pain, nausea or vomiting. Plan is to discharge home with Cephalexin for 7 days for the UTI Procedures performed: CBC, CMP, CT abdomen and pelvis without contrast Is tomorrow can idea about by Discharge Instructions: *Follow up with your primary care physician in 2 - 3 days after discharge. *Continue all medications as prescribed. Do not discontinue or change dosages without consulting your PCP. *Gradually resume normal activities as tolerated. *Continue a balanced diet . Reduce salt intake to help manage BP. *Seek immediate medical attention if you experience chest pain, SOB or severe headache. *Smoking cessation is strongly advised. Resources for quitting smoking are available upon request. Discharged to: Home Condition on Discharge: Stable Tobacco Weigher(s): Gastroenterology Procedure(s): CT abdomen/pelvis Assessment/Plan: ASSESSMENT: Acute complicated cystitis, POA Transaminitis, POA (elevated AST 243 and ALT 162) Acute on chronic abdominal pain, secondary to above Substance abuse, UDS positive cocaine and marijuana GERD Anemia Obesity, BMI 31.3 Multiple ED visits (28 visits) PLAN: -Admit to medical floor. -Continue Rocephin 2 g IV daily. -Start LR at 100 mL an hour. -Monitor liver and renal function. -Avoid hepatotoxic medications. -Pepcid 20 mg p.o. b.i.d.. -Consult GI. -p.r.n. medications for: Pain management, nausea, vomiting, constipation, hypertension, fever. -Education on cocaine and marijuana cessation. -Education on avoiding hepatotoxic medications. -Glucometer checks AC & HS needed with insulin regular sliding scale coverage as needed. -Monitor respirations. Oxygen therapy as needed. Titrate oxygen prn to keep Spo2>/+=92%. -Blood pressure checks every 4 hours -Monitor electrolytes and treat accordingly. -GI and DVT prophylaxis: Pepcid and Lovenox -AM labs. -Additional orders per hospital course. Discharge Instructions: Discharge Instructions: Follow up with [facility] for further evaluation and management. *Follow up with your primary care physician in 2 - 3 days after discharge. *Continue all medications as prescribed. Do not discontinue or change dosages without consulting your PCP. *Gradually resume normal activities as tolerated. *Continue a balanced diet . Reduce salt intake to help manage BP. *Seek immediate medical attention if you experience chest pain, SOB or severe headache. *Smoking cessation is strongly advised. Resources for quitting smoking are available upon request. Home Medications: Discontinued Scripts Amoxicillin/Potassium Clav (Amox Tr-K Clv 875-125 mg Tab) 875 Mg-125 Mg Tablet, 1 EACH PO BID for 5 Days, #10 TAB 0 Refills Prov:MALIKA BRAUN MD 01/11/25 Albuterol Sulfate (Ventolin Hfa/Proventil Hfa/Proair Hfa) 90 Mcg Puff, 1 PUFF IH Q4H PRN for SHORTNESS OF BREATH for 5 Days, #1 INH 0 Refills PHARMACY TO DISPENSE 1 INHALER FOR USE Prov:MALIKA BRAUN MD 01/11/25 Ondansetron (Ondansetron Odt) 4 Mg Tab.rapdis, 4 MG PO Q6HPRN PRN for nausea, #16 TAB 0 Refills Prov:ENDY HARRIS NP 12/09/24 Amoxicillin/Potassium Clav (Amox Tr-K Clv 875-125 mg Tab) 875 Mg-125 Mg Tablet, 1 EACH PO BID for 7 Days, #14 TAB 0 Refills Prov:ENDY HARRIS NP 12/09/24 Amoxicillin/Potassium Clav (Amox Tr-K Clv 875-125 mg Tab) 875 Mg-125 Mg Tablet, 1 EACH PO BID for 7 Days, #14 TAB 0 Refills Prov:ENDY HARRIS DIRECTOR OF MANAGED CARE 07/26/24 Dicyclomine HCl (Bentyl) 20 Mg Tab, 1 TAB PO QID for irritable bowel symptoms, #30 TAB 0 Refills ONE TABLET BY MOUTH EVERY 6 HOURS P.R.N. PAIN Prov:ENDY HARRIS NP 07/26/24 Ibuprofen (Motrin/Advil) 800 Mg Tab, 800 MG PO TID, #30 TAB Prov:WOODY MADSEN MD 11/26/23 Gabapentin (Neurontin) 300 Mg Capsule, 300 MG PO TID, #60 CAP Prov:WOODY MADSEN MD 11/26/23 Cyclobenzaprine HCl (Cyclobenzaprine HCl) 10 Mg Tablet, 10 MG PO TID, #60 TAB Prov:WOODY MADSEN MD 11/26/23 Metoclopramide HCl (Reglan) 10 Mg Tablet, 10 MG PO QIDP PRN for NAUSEA, #30 TAB 2 Refills Prov:DANUTA CRUZ Sr., MD 07/14/23 Cephalexin Monohydrate (Keflex) 500 Mg Cap, 500 MG PO QID for 10 Days, #40 CAP 0 Refills Prov:DANUTA CRUZ Sr., MD 07/14/23 Acetaminophen with Codeine (Acetaminophen-Cod #3 Tablet) 1 Each Tablet, 1 TAB PO Q6H PRN for PAIN LEVEL 7 TO 10, #15 TAB Prov:JEANETTE POWERS MD 06/06/22 Ibuprofen (Ibuprofen) 600 Mg Tablet, 600 MG PO Q6H PRN for PAIN, #30 TAB Prov:JEANETTE POWERS MD 06/06/22 Time spent arranging discharge: 31-60 minutes ESTHELA REES MD Mar 15, 2025 14:34
[2025-03-15] MEDS ORDERED: CEPH500C2 PO (14:41)
[2025-03-15 14:45] VITALS: BP 103/58; PULSE 77; RESP 16; TEMP 97.5; O2SAT 98
--- NOTE | 2025-03-15 14:47 | NUR ---
PT AAOX4 STABLE NO DISTRESS VITALS WNL NO C/O PAIN NOW, PT GIVEN INSTRUCTION FOR HOME VERBALZIED UNDERSTANDING, IV REMOVED CATHETER INTACT, PT TAKEN OUT TO ED LOBBY IN W/C DRIVEN HOME BY FAMILY.E
--- NOTE | 2025-03-15 14:52 | NUR ---
1456 PT STATES SHE LOST A GOLD RING WITH BLUE EYE ON IT IN ED ROOM 1 PT STATES SHE HAD BEEN CHANGED ROOMS OVER NIGHT, CALLED SECURITY NOW, NOTHING WAS REPORT FOUND IN ED ROOM 1.
[2025-03-15 23:41] LABS: HEPATITIS A IGM ANTIBODY Non-Reactive (Nonreactive); HEPATITIS B CORE IGM ANTIBODY Non-Reactive (Negative); HEPATITIS B SURFACE ANTIGEN Non-Reactive (Nonreactive); HEPATITIS C ANTIBODY Non-Reactive (Nonreactive)
[2025-03-16 10:13] LABS: ANTI-SCLERODERMA 70 <0.2 AI (0.0-0.9)
[2025-03-21 14:12] LABS: ALPHA-1-ANTITRYPSIN 145 mg/dL (100-188)
== END 2025-03-15 16:55 | disposition home or self-care (01) ==
LOC: EDH 16:53 → INTOOBSV 16:54 → EDHIP 16:54
PROVIDERS: ADMIT Internal Medicine; ATTEND Internal Medicine
DX: N30.00 Acute cystitis without hematuria (principal); R74.01 Elevation of levels of liver transaminase levels; R10.9 Unspecified abdominal pain; F12.10 Cannabis abuse, uncomplicated; F14.10 Cocaine abuse, uncomplicated; G89.29 Other chronic pain; D64.9 Anemia, unspecified; E66.9 Obesity, unspecified; K21.9 Gastro-esophageal reflux disease without esophagitis; F17.200 Nicotine dependence, unspecified, uncomplicated; Z68.31 Body mass index [BMI] 31.0-31.9, adult; Z90.49 Acquired absence of other specified parts of digestive tract; Z79.899 Other long term (current) drug therapy
CPT/HCPCS: 96372 ×2; 96361 ×3; 99285; 80076; 80048; 80305; 83690; 85025; 87086; 81001; 81025; 36415 ×2; 76705; 96374; 83540; 83550; 85610; 82390; 82104; 86038; 82103; 86235 ×7; 80074; 86376; 86215; 74176; 86015; 86381; J0696 ×2; J1885; G0378 ×6; J1650; 96365